=== PATIENT | female | born 1965 | race Caucasian/White ===

== ENCOUNTER → 2023-06-24 10:28 | Outpatient (BNVA) | payer BC, SELFPAY | PROVIDERS: Family Provider Family Medicine; PCP Family Medicine; Visit Provider Nurse Practitioner Family | DX: S99.921A Unspecified injury of right foot, initial encounter (principal); W22.09XA Striking against other stationary object, initial encounter; M19.071 Primary osteoarthritis, right ankle and foot | CPT/HCPCS: 73630 ==